=== PATIENT | female | born 1985 | race Two or more races ===

== ENCOUNTER 2025-01-18 14:52 | Emergency (ER) | payer SELFPAY ==
[2025-01-18 15:21] VITALS: BP 128/72; PULSE 79; TEMP 37.1; O2SAT 100; BMI 39.0
--- NOTE | 2025-01-18 15:35 | ED_ITS ---
HPI HPI - General Adult General Chief complaint: Abdominal Pain Stated complaint: ABDOMINAL PAIN VOMITING Time Seen by Provider: 01/18/25 15:17 Source: patient Mode of arrival: walk-in History of Present Illness HPI narrative: 39-year-old female presents for low abdominal pain and cramping. She has had nausea and vomiting. Symptoms started mild last night and this morning she thought she was having some period cramps. It got worse and the pain is in the bilateral lower abdomen. No trauma or fever or dysuria or hematuria. Related Data Previous Rx's ?Medication ?Instructions ?Recorded cephalexin 500 mg capsule 500 mg PO TID 7 days #21 cap s 01/18/25 etodolac 300 mg capsule 300 mg PO Q8H PRN pain #20 c aps 01/18/25 ondansetron 4 mg disintegrating 4 mg PO Q6H PRN nausea and 01/18/25 tablet vomiting #20 tabs Allergies Allergy/AdvReac Type Severity Reaction Status Date / Time Sulfa (Sulfonamide Allergy Mild Hives Verified 01/18/25 15:20 Antibiotics) Review of Systems ROS Narrative A ten point review of systems is negative except as noted above. PFSH PFSH Social History Little interest or pleasure in doing things: not at all Feeling down, depressed, or hopeless: not at all Exam Narrative Exam Narrative: Nurses note and vital signs reviewed and patient is not hypoxic. General: The patient appears well and in no apparent distress. Patient is resting comfortably on cart. Skin: Warm, dry, no pallor noted. There is no rash noted. Head: Normocephalic, atraumatic Eye: Normal conjunctiva, no drainage Ears, Nose, Mouth, and Throat: oral mucosa is moist. Nares patent. Cardiovascular: Regular Rate and Rhythm Respiratory: Patient is in no distress, no accessory muscle use, lungs are clear to auscultation, no wheezing, rales or rhonchi Back: non-tender, no CVA tenderness bilaterally to percussion. GI: Soft and nondistended. Bilateral lower abdominal tenderness present. Musculoskeletal: The patient has no evidence of calf tenderness, no pitting edema, symmetrical pulses noted bilaterally Neurological: A&O, normal speech Psychiatric: Cooperative Constitutional Vital Signs, click to edit/add: Last Vital Signs Temp 98.8 F 01/18/25 15:21 Pulse 79 01/18/25 15:21 Resp 16 06/04/25 15:21 BP 128/72 01/18/25 15:21 Pulse Ox 100 01/18/25 15:21 O2 Del Method Room Air 01/18/25 15:21 Course Vital Signs Vital signs: Vital Signs Temperature 98.8 F 01/18/25 15:21 Pulse Rate 79 01/18/25 15:21 Respiratory Rate 16 01/18/25 15:21 Blood Pressure 128/72 01/18/25 15:21 Pulse Oximetry 100 01/18/25 15:21 Oxygen Delivery Method Room Air 01/18/25 15:21 Temperature 98.8 F 01/18/25 15:21 Pulse Rate 79 01/18/25 15:21 Respiratory Rate 16 01/18/25 15:21 Blood Pressure 128/72 01/18/25 15:21 Pulse Oximetry 100 01/18/25 15:21 Oxygen Delivery Method Room Air 01/18/25 15:21 Medical Decision Making MDM Narrative Medical decision making narrative: CT is negative. Urinalysis suggest UTI. She was given IV Rocephin and prescribed Keflex and she was also prescribed Lodine and Zofran. Treatment diagnosis and follow-up were discussed with the patient. She was also found to have mild anemia and was referred to PCP for that issue. Differential Diagnosis Differential Diagnosis: UTI, diverticulitis, constipation Lab Data Lab results reviewed: Yes I reviewed the patient's lab results Labs: Lab Results 01/18/25 01/18/25 Range/Units 15:57 16:25 WBC 7.4 (4.0-11.0) 10^3/uL RBC 3.72 L (4.20-5.40) 10^6/uL Hgb 8.4 L (12.0-16.0) g/dL Hct 27.1 L (36.0-48.0) % MCV 72.8 L (81.0-99.0) fL MCH 22.6 L (26.7-34.0) pg MCHC 31.0 (29.9-35.2) g/dL RDW 18.1 H (11.0-15.0) % Plt Count 269 (150-450) 10^3/uL MPV 10.7 (9.5-13.5) fL Neut % (Auto) 55.0 (43.0-75.0) % Lymph % (Auto) 33.5 (20.5-60.0) % [place] % (Auto) 8.1 (1.7-12.0) % Eos % (Auto) 2.6 (0.9-7.0) % Baso % (Auto) 0.5 (0.2-2.0) % Neut # (Auto) 4.1 (1.4-6.5) 10^3/uL Lymph # (Auto) 2.5 (1.2-3.8) 10^3/uL [place] # (Auto) 0.6 (0.3-0.8) 10^3/uL Eos # (Auto) 0.2 (0.0-0.7) 10^3/uL Baso # (Auto) 0.0 (0.0-0.1) 10^3/uL Abs Immat Gran (auto) 0.02 (0.00-0.03) 10^3/uL Imm/Tot Granulo (auto) 0.3 (0.0-0.5) % Sodium 140 (136-145) mmol/L Potassium 3.4 L (3.5-5.1) mmol/L Chloride 104 (98-107) mmol/L Carbon Dioxide 28.4 (21.0-32.0) mmol/L Anion Gap 11.0 BUN 8.0 (7.0-18.0) mg/dL Creatinine 0.54 L (0.55-1.02) mg/dL Est GFR ( Amer) >60 (>=60 mL/min/1.73m^2) Est GFR (Non-Af Amer) >60 (>=60 mL/min/1.73m^2) BUN/Creatinine Ratio 14.8 Glucose 156 H (74-106) mg/dL Calcium 8.7 (8.5-10.1) mg/dL Serum HCG, Qual Negative (NEGATIVE) Urine Color Dk yellow (YELLOW) Urine Clarity Cloudy A (CLEAR) Urine pH 5.5 (5.0-9.0) Ur Specific [place] >=1.030 A (1.005-1.025) Urine Protein >=300 A (NEG/TRACE) mg/dL Urine Glucose (UA) Negative (NEGATIVE) mg/dL Urine Ketones Trace A (NEGATIVE) mg/dL Urine Occult Blood Large A (NEGATIVE) Urine Nitrite Positive A (NEGATIVE) Urine Bilirubin Small A (NEGATIVE) Urine Urobilinogen 1.0 (0.2-1.0) EU/dL Ur Leukocyte Esterase Trace A (NEGATIVE) Urine RBC 75-100 A (0-2) #/HPF Urine WBC 5-10 A (NONE SEEN) #/HPF Ur Squamous Epith Cells Moderate A (NONE/RARE) #/LPF Urine Crystals None seen (None Seen) #/HPF Urine Bacteria Moderate A (NONE SEEN) #/HPF Urine Casts None seen (NONE SEEN) #/LPF Urine Mucus Large A (NONE SEEN) Ur Culture Indicated? [place] [place] scan - abdomen: Radiologist's impression: ITS Impressions Abdomen/Pelvis CT 01/18/25 16:45 IMPRESSION: No acute findings. Impression dictated by: Edi Fang M.D. 01/18/2025 5:25 PM Dictation Location[facility] Electronically authenticated by: [id number] Y Date: 01/18/2025 17:25 Discharge Plan Discharge Chief Complaint: Abdominal Pain Clinical Impression: UTI (urinary tract infection) Patient Disposition: Home, Self-Care Time of Disposition Decision: 17:43 Condition: Good Mode of Transportation: Private Vehicle Prescriptions / Home Meds: New cephalexin 500 mg capsule 500 mg PO TID 7 Days Qty: 21 0RF ondansetron 4 mg tablet,disintegrating 4 mg PO Q6H PRN (Reason: nausea and vomiting) Qty: 20 0RF etodolac 300 mg capsule 300 mg PO Q8H PRN (Reason: pain) Qty: 20 0RF Print Language: Tamazight Instructions: Urinary Tract Infection in Women (ED) Referrals: Physician,Non-Staff, MD [Primary Care Provider] - 1 week
[2025-01-18] MEDS: 0.9 % SODIUM CHLORIDE 1,000 ML 1000 ML IV (15:57)
[2025-01-18] MEDS: ONDANSETRON PF 4 MG/2 ML VIAL IV (15:59)
[2025-01-18 16:06] LABS: Basophils Percent Auto 0.5 % (0.2-2.0); Eosinophils Absolute Auto 0.2 10^3/uL (0.0-0.7); Eosinophils Percent Auto 2.6 % (0.9-7.0); Hematocrit 27.1 % (36.0-48.0); Hemoglobin 8.4 g/dL (12.0-16.0); Immature Granulocytes Abs Auto 0.02 10^3/uL (0.00-0.03); Immature Granulocytes Pct Auto 0.3 % (0.0-0.5); Lymphocytes Absolute Auto 2.5 10^3/uL (1.2-3.8); Lymphocytes Percent Auto 33.5 % (20.5-60.0); Mean Corpuscular Hemoglobin 22.6 pg (26.7-34.0); Mean Corpuscular Volume 72.8 fL (81.0-99.0); Mean Platelet Volume 10.7 fL (9.5-13.5); Monocytes Absolute Auto 0.6 10^3/uL (0.3-0.8); Monocytes Percent Auto 8.1 % (1.7-12.0); Neutrophils Absolute Auto 4.1 10^3/uL (1.4-6.5); Platelet Count 269 10^3/uL (150-450); Red Blood Count 3.72 10^6/uL (4.20-5.40); Red Cell Distribution Width 18.1 % (11.0-15.0); White Blood Count 7.4 10^3/uL (4.0-11.0)
[2025-01-18 16:24] LABS: BUN Creatinine Ratio 14.8; Calcium 8.7 mg/dL (8.5-10.1); Carbon Dioxide 28.4 mmol/L (21.0-32.0); Chloride 104 mmol/L (98-107); Estimated GFR (African America >60 (>=60 mL/min/1.73m^2); Estimated GFR (Non-African Ame >60 (>=60 mL/min/1.73m^2); Glucose 156 mg/dL (74-106); Potassium 3.4 mmol/L (3.5-5.1); Sodium 140 mmol/L (136-145)
[2025-01-18 16:42] LABS: HCG Qualitative NEGATIVE (NEGATIVE); Internal Control Within Normal Limits
--- NOTE | 2025-01-18 16:45 | CT_ITS ---
The [address] [address] Patient Name: NO CLEARY MRN: [id number] date: 1985 Sex: F Assigned Patient Location: ER Current Patient Location: ER Accession/Order Number: [id number] Exam Date: 01/18/2025 17:21 Report Date: 01/18/2025 17:25 At the request of: GENEVA GRAY MD Procedure: CT abdomen pelvis w con CT Abdomen and Pelvis withcontrast TECHNIQUE: Axial imaging with 2-D reconstruction. . The CT exam was performed using one or more the following dose reduction techniques: Automated exposure control, adjustment of the MA and/or Kv according to patient size, or use of the iterative reconstruction technique. COMPARISON: None History: Bilateral lower quadrant pain. Possible food poisoning LIMITATIONS: None LOWER THORAX Unremarkable LIVER: Hepatomegaly. GALLBLADDER: No gallbladder abnormality identified. BILE DUCTS: No dilatation SPLEEN: Unremarkable PANCREAS: Unremarkable ADRENAL GLANDS: Unremarkable KIDNEYS:Small left renal cyst. No hydronephrosis. AORTA: No abdominal aortic aneurysm identified. RETROPERITONEUM: No significant retroperitoneal abnormalities identified. MESENTERY:Unremarkable SMALL BOWEL: The small bowel loops are nondistended. APPENDIX: The appendix is normal. COLON: Unremarkable URINARY BLADDER: Urinary bladder is unremarkable. REPRODUCTIVE SYSTEM: Reproductive structures are unremarkable. PNEUMOPERITONEUM: None PERITONEAL FLUID:None BONY STRUCTURES: Unremarkable ABDOMINAL WALL: Nonspecific skin thickening in the umbilical region. CT/CT abdomen pelvis w con IMPRESSION: No acute findings. Impression dictated by: Edi Fang M.D. 01/18/2025 5:25 PM Dictation Location: [employer] Electronically authenticated by: [id number] Y Date: 01/18/2025 17:25
[2025-01-18] MEDS: KETOROLAC TROMETHAMINE 30 MG/ML VIAL IVP (17:04)
[2025-01-18 17:06] LABS: Bilirubin Urine SMALL (NEGATIVE); Blood Urine LARGE (NEGATIVE); Clarity Urine CLOUDY (CLEAR); Color Urine DK YELLOW (YELLOW); Glucose Urine UA NEGATIVE (NEGATIVE); Ketones Urine TRACE mg/dL (NEGATIVE); Leukocyte Esterase Urine TRACE (NEGATIVE); Nitrite Urine POSITIVE (NEGATIVE); Protein Urine >=300 mg/dL (NEG/TRACE); Specific Gravity Urine >=1.030 (1.005-1.025); pH Urine 5.5 (5.0-9.0)
[2025-01-18 17:16] LABS: RBC Urine 75-100 #/HPF (0-2)
[2025-01-18 17:17] LABS: Bacteria Urine MODERATE #/HPF (NONE SEEN); Cast Seen? NONE SEEN #/LPF (NONE SEEN); Crystals Seen? None Seen #/HPF (None Seen); Mucus Urine LARGE (NONE SEEN); Squamous Epithelial Cell Urine MODERATE #/LPF (NONE/RARE); Urine Culture Indicated YES-FRMC
[2025-01-18] MEDS: CEFTRIAXONE 1,000 MG in 0.9 % SODIUM CHLORIDE 50 ML 100 MG IV (17:31)
== END 2025-01-18 18:06 | disposition home or self-care (01) ==
PROVIDERS: Emergency Provider Emergency Medicine
DX: N39.0 Urinary tract infection, site not specified (principal)
CPT/HCPCS: 36415; 74177; 80048; 81001; 84703; 85025; 87086; 87088; 87186; 96361; 96365; 96375; 99285; J0696; J1885; J2405; Q9967

== ENCOUNTER 2025-07-19 19:22 | Emergency (ER) | payer SELFPAY ==
[2025-07-19 19:37] VITALS: BP 150/100; PULSE 71; TEMP 36.7; O2SAT 100; BMI 33.1
--- NOTE | 2025-07-19 19:57 | PC.NURSE ---
Pain to right rib cage area, pain worse on inspiration.
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
[2025-07-19 20:24] LABS: Hematocrit 27.7 % (36.0-48.0); Hemoglobin 8.7 g/dL (12.0-16.0); Immature Granulocytes Abs Auto 0.03 10^3/uL (0.00-0.03); Immature Granulocytes Pct Auto 0.3 % (0.0-0.5); Lymphocytes Absolute Auto 2.8 10^3/uL (1.2-3.8); Mean Corpuscular HGB Conc 31.4 g/dL (29.9-35.2); Mean Corpuscular Hemoglobin 24.1 pg (26.7-34.0); Mean Corpuscular Volume 76.7 fL (81.0-99.0); Platelet Count 262 10^3/uL (150-450); Red Blood Count 3.61 10^6/uL (4.20-5.40); White Blood Count 9.0 10^3/uL (4.0-11.0)
[2025-07-19] MEDS: ACETAMINOPHEN 325 MG TABLET 650 MG PO (20:36)
[2025-07-19 20:38] LABS: Alanine Aminotransferase 16 U/L (14-59); Albumin Globulin Ratio 0.9; Albumin Level 3.3 g/dL (3.4-5.0); Alkaline Phosphatase 72 U/L (46-116); Anion Gap 9.2; Aspartate Amino Transferase 10 U/L (15-37); Blood Urea Nitrogen 8.0 mg/dL (7.0-18.0); Calcium 8.5 mg/dL (8.5-10.1); Carbon Dioxide 28.3 mmol/L (21.0-32.0); Chloride 106 mmol/L (98-107); Estimated GFR (African America >60 (>=60 mL/min/1.73m^2); Estimated GFR (Non-African Ame >60 (>=60 mL/min/1.73m^2); Globulin 3.5 g/dL; Glucose 127 mg/dL (74-106); Potassium 3.5 mmol/L (3.5-5.1); Sodium 140 mmol/L (136-145); Total Protein 6.8 g/dL (6.4-8.2)
== END 2025-07-19 23:39 | disposition home or self-care (01) ==
PROVIDERS: Emergency Provider Emergency Medicine
DX: S20.211A Contusion of right front wall of thorax, initial encounter (principal); H11.32 Conjunctival hemorrhage, left eye; S09.8XXA Other specified injuries of head, initial encounter; Y04.8XXA Assault by other bodily force, initial encounter
CPT/HCPCS: 36415; 70450; 71260; 72125; 76376; 80053; 85025; 99285; Q9967